=== PATIENT | male | born 1955 ===

== ENCOUNTER 2023-07-03 11:33 | Emergency (ER) | payer MEDICARE, SELFPAY ==
[2023-07-03] MEDS ORDERED: Morphine 4 MG/ML VIAL ONE (12:47)
[2023-07-03] MEDS ORDERED: Ondansetron PF 4 MG/2 ML Vial ONE (12:48)
[2023-07-03 13:28] LABS: Bilirubin 1+ (Negative); Blood, Urine Trace (Negative); CAUTI Indications for Culture Dysuria,urgency,freq; Clarity Clear (Clear); Glucose, Urine (Dipstick) Greater than 1000 mg/dL (Negative); Ketone, Urine 20 mg/dL (Negative); Leukocyte Negative Leu/uL (Negative); Mucous/LPF Rare LPF (<2+); Nitrite Negative (Negative); Protein, Urine (Dipstick) 20 mg/dL (Neg-Trace); RBC/HPF 0-3 HPF (0-3); Specific Gravity, Urine 1.022 (1.002-1.036); Squamous Epithelial 0-3 HPF (0-3); Urobilinogen Normal mg/dL (Less than 2); WBC/HPF 0-3 HPF (0-3)
[2023-07-03 13:39] LABS: Bacteria/HPF 1+ HPF (None Seen)
[2023-07-03 13:40] LABS: Urine Culture Reflex No No
[2023-07-03 13:52] LABS: #Monocytes 0.5 thou/uL (0.11-0.59); #Neutrophils 15.9 thou/uL (1.40-6.50); %Basophils 0.2 % (0.0-1.0); %Lymphocytes 1.7 % (21.0-51.0); %Monocytes 2.7 % (0.0-10.0); %Neutrophils 94.7 % (42.0-75.0); Hematocrit 41.9 % (42.0-52.0); Hemoglobin 14.1 g/dL (14.0-18.0); Mean Corpuscular HGB CONC 33.7 g/dL (32.0-36.0); Mean Corpuscular Hemoglobin 30.3 pg (27.0-31.0); Mean Corpuscular Volume 89.9 fl (78.0-98.0); Mean Platelet Volume 10.4 fL (7.4-10.4); Platelet Count 193 10x3/uL (130-400); RBC Distribution Width 16.1 % (11.5-14.5); Red Blood Cell (RBC) Count 4.66 mill/uL (4.70-6.10); White Blood Cell (WBC) Count 16.8 10x3/uL (4.8-10.8)
[2023-07-03 14:50] LABS: Anion Gap 19 mmol/L (10-20); BUN (Urea Nitrogen) 36 mg/dL (8.4-25.7); Calc. Creatinine Clearance 0 mL/min (70-130); Carbon Dioxide 16 mmol/L (23-31); Chloride 101 mmol/L (98-107); Potassium 3.6 mmol/L (3.5-5.1); Sodium 132 mmol/L (136-145)
[2023-07-03 14:51] LABS: ALT (SGPT) 54 U/L (8-55); AST (SGOT) 32 U/L (5-34); Alkaline Phosphatase 407 U/L (40-110); Bilirubin, Total 8.7 mg/dL (0.2-1.2); CRP (Inflammatory) 27.54 mg/dL (= or < 0.5); Calcium 8.7 mg/dL (7.8-10.44); Estimated GFR 46; Globulin 3.3 g/dL (2.4-3.5); Glucose 231 mg/dL (80-115); Lipase 41 U/L (8-78); Protein, Total 6.3 g/dL (5.8-8.1)
[2023-07-03] MEDS ORDERED: Piperacillin/Tazobactam 4.5 GM VIAL ONE (15:04)
[2023-07-03] MEDS ORDERED: Sodium Chloride 0.9% 100 ML ONE (15:04)
[2023-07-03] MEDS ORDERED: Vancomycin (BATCH) 1.5 GM in Premix 1 BAG IVPB SCH (15:30)
[2023-07-03] MEDS ORDERED: Iopamidol-370 76% 500 ML MDV (1 ML CHARGE) ONE (16:00)
[2023-07-03] MEDS ORDERED: Piperacillin/Tazobactam 3.375 GM in Sodium Chloride 0.9% 100 ML IVPB SCH ×2 (18:00→20:00)
[2023-07-03] MEDS ORDERED: Sodium Chloride 0.9% 1,000 ML IV SCH (18:00)
[2023-07-03] MEDS ORDERED: Vancomycin 1 GM in Premix 1 BAG IVPB SCH (21:00)
== END 2023-07-03 20:30 | disposition short-term general hospital (02) ==
LOC: ERS 11:33
DX: K80.42 Calculus of bile duct with acute cholecystitis without obstruction (principal); E11.9 Type 2 diabetes mellitus without complications; E78.5 Hyperlipidemia, unspecified; Z79.899 Other long term (current) drug therapy
CPT/HCPCS: 71045; 74177; 80053; 81001; 83605; 83690; 85025; 86140; 87040; 87149 ×2; 93005; 96361; 96365; 96367; 96375; 99285; J3370; 36415; 87077; J2270; J2405; J2543; J3490; Q9967